=== PATIENT | female | born 1995 | race Two or more races ===

== ENCOUNTER 2022-10-21 17:36 | Emergency (ER) | payer OTHER ==
[~2022-10-21] VITALS: Ht 154.9 cm; Wt 81.6 kg
[2022-10-21 17:44] VITALS: O2SAT 99
== END 2022-10-21 19:19 | disposition left against medical advice (07) ==
LOC: ER 17:36
DX: M25.511 Pain in right shoulder (principal); R07.89 Other chest pain
CPT/HCPCS: A4663

== ENCOUNTER 2022-10-24 21:38 | Emergency (ER) | payer OTHER ==
[~2022-10-24] VITALS: Ht 154.9 cm; Wt 81.6 kg
[2022-10-24] MEDS ORDERED: IBUPROFEN 800 MG TABLET PO ONE (23:00)
[2022-10-24] MEDS ORDERED: IBUPROFEN 800 MG TABLET ONE (23:03)
[2022-10-24 23:04] LABS: BASOPHILS % (AUTO) 0.6 % (0.0-2.0); EOSINOPHILS # (AUTO) 0.2 K/uL (0.0-0.7); EOSINOPHILS % (AUTO) 2.7 % (0.0-7.0); HEMATOCRIT 40.6 % (31.2-41.9); HEMOGLOBIN 13.7 g/dL (10.9-14.3); LYMPHOCYTES # (AUTO) 2.9 K/uL (0.8-4.8); LYMPHOCYTES % (AUTO) 36.6 % (20.5-51.5); MEAN CORPUSCULAR HGB CONC 34 g/dL (32.3-35.6); MEAN CORPUSCULAR VOLUME 82.7 fL (75.5-95.3); MONOCYTES # (AUTO) 0.7 K/uL (0.1-1.30); MONOCYTES % (AUTO) 8.3 % (0.0-11.0); NEUTROPHILS # (AUTO) 4.1 K/uL (1.8-8.9); NEUTROPHILS % (AUTO) 51.8 % (38.5-71.5); PLATELET COUNT (AUTO) 246 K/uL (179-408); RED BLOOD CELL COUNT(AUTO) 4.91 MIL/uL (3.63-4.92); RED CELL DISTRIBUTION WIDTH 13.8 % (12.3-17.7)
[2022-10-24 23:15] LABS: CALCIUM 9.1 mg/dL (8.5-10.1); CREATININE 0.9 mg/dL (0.6-1.3); POTASSIUM 3.9 mmol/L (3.5-5.1)
[2022-10-24 23:21] LABS: ALBUMIN 3.6 g/dL (3.4-5.0); BILIRUBIN,TOTAL 0.2 mg/dL (0.2-1.0); TOTAL PROTEIN, SERUM 8.4 g/dL (6.4-8.2)
[2022-10-25] MEDS ORDERED: NAPR500T6 PO (00:13)
[2022-10-25] MEDS ORDERED: ONDA4TAB5 PO (00:13)
[2022-10-25 00:20] VITALS: BP 132/88; TEMP 97.8; O2SAT 99
== END 2022-10-25 00:21 | disposition home or self-care (01) ==
LOC: ER 21:40
DX: R07.89 Other chest pain (principal); M25.511 Pain in right shoulder; R10.11 Right upper quadrant pain; R74.8 Abnormal levels of other serum enzymes; Z79.899 Other long term (current) drug therapy
CPT/HCPCS: 36415; 71045; 84484; 85025; 93005; A4663

== ENCOUNTER 2023-03-30 22:20 | Emergency (ER) | payer OTHER ==
[~2023-03-30] VITALS: Ht 157.5 cm; Wt 83.9 kg
[~2023-03-30 22:20] MED LIST: NAPR500T6 PO; ONDA4TAB5 PO
[2023-03-30] MEDS ORDERED: ONDANSETRON ODT 4 MG TAB.RAPDIS ONE (22:50)
[2023-03-30] MEDS ORDERED: HYDROCODONE/APAP 10-325 MG TABLET ONE (22:50)
[2023-03-30] MEDS: ONDANSETRON ODT 4 MG TAB.RAPDIS SL ONE (22:56)
[2023-03-30] MEDS: HYDROCODONE/APAP 10-325 MG TABLET PO ONE (22:58)
[2023-03-30] MEDS ORDERED: METO-295 PO (23:06)
[2023-03-30] MEDS ORDERED: HYDR-3980 PO (23:06)
[2023-03-30 23:08] LABS: *URINE HCG, QUAL NEGATIVE (NEGATIVE)
[2023-03-30] MEDS ORDERED: CYCL10TA9 PO (23:16)
[2023-03-30] MEDS ORDERED: ONDA4TAB11 PO (23:16)
[2023-03-30] MEDS ORDERED: CYCLOBENZAPRINE HCL 10 MG TABLET ONE (23:32)
[2023-03-30] MEDS: CYCLOBENZAPRINE HCL 10 MG TABLET PO ONE (23:34)
[2023-03-31 00:01] VITALS: BP 140/92; TEMP 98; O2SAT 99
== END 2023-03-31 00:02 | disposition home or self-care (01) ==
LOC: ER 22:22
DX: G43.909 Migraine, unspecified, not intractable, without status migrainosus (principal); M79.10 Myalgia, unspecified site; R25.2 Cramp and spasm; F41.9 Anxiety disorder, unspecified; R10.2 Pelvic and perineal pain; Z79.899 Other long term (current) drug therapy
CPT/HCPCS: 84703; A4606; A4663; Q0162